=== PATIENT | female | born 1965 | race Two or more races ===

== ENCOUNTER → 2016-08-08 | Outpatient (CLI) | payer BC ==
--- NOTE | 2016-08-15 10:01 | MM ---
Reason for exam: screening (asymptomatic). Last mammogram was performed 1 year and 2 months ago. Physical Findings: A clinical breast exam by your physician is recommended on an annual basis and results should be correlated with mammographic findings. MG 3D Screening Mammo W/Cad Bilateral CC and MLO view(s) were taken. Prior study comparison: June 13, 2015, mammogram, performed at [facility]. October 26, 2013, mammogram, performed at [facility]. October 19, 2013, mammogram, performed at [facility]. The breast tissue is extremely dense which could obscure a lesion on mammography. Finding: There are typically benign round, diffuse/scattered calcifications in both breasts, greater in the right breast. There is no discrete abnormality. ASSESSMENT: Benign, BI-RAD 2 RECOMMENDATION: Routine screening mammogram of both breasts in 1 year.
== END | disposition home or self-care (01) ==
LOC: RADMAMWWP 12:23
PROVIDERS: ATTEND Obstetrics & Gynecology
DX: Z12.31 Encounter for screening mammogram for malignant neoplasm of breast (principal)
CPT/HCPCS: 77063; G0202

== ENCOUNTER → 2018-01-08 | Outpatient (CLI) | payer BC ==
--- NOTE | 2018-01-10 07:30 | MM ---
Reason for exam: screening (asymptomatic). Last mammogram was performed 1 year and 5 months ago. Physical Findings: A clinical breast exam by your physician is recommended on an annual basis and results should be correlated with mammographic findings. MG 3D Screening Mammo W/Cad Bilateral CC and MLO view(s) were taken. Prior study comparison: August 08, 2016, bilateral MG 3d screening mammo w/ cad. June 13, 2015, mammogram, performed at [facility]. The breast tissue is extremely dense which could obscure a lesion on mammography. Diffuse punctate calcifications throughout are stable. No significant changes when compared with prior studies. ASSESSMENT: Benign, BI-RAD 2 RECOMMENDATION: Routine screening mammogram of both breasts in 1 year. Patient should continue monthly self breast exams. A negative mammogram should not preclude additional follow up of suspicious palpable abnormalities. ESTIVEN
== END | disposition home or self-care (01) ==
LOC: RADMAMWWP 12:53
PROVIDERS: ATTEND Obstetrics & Gynecology
DX: Z12.31 Encounter for screening mammogram for malignant neoplasm of breast (principal)
CPT/HCPCS: 77063; 77067

== ENCOUNTER → 2019-04-29 | Outpatient (CLI) | payer BC ==
--- NOTE | 2019-04-29 09:23 | US ---
EXAMINATION TYPE: US pelvic complete DATE OF EXAM: 04/29/2019 COMPARISON: NONE CLINICAL HISTORY: N93.8 Dysfunctional Uterine Bleeding. Patient states her doctor felt her uterus was enlarged, patient states no pelvic pain or irregular bleeding, 6, para 4, miscarriage. TECHNIQUE: . Transabdominal sonographic images of the pelvis were acquired. Date of LMP: 04/11/2019 EXAM MEASUREMENTS: Uterus: 10.2 x 6.3 x 7.3 cm Endometrial Stripe: 1.2 cm Right Ovary: 2.4 x 1.7 x 2.2 cm Left Ovary: 3.9 x 2.6 x 2.3 cm 1. Uterus: Enlarged. Nabothian cysts seen. Heterogeneous with 1.8cm hypoechoic area and 1.2cm hypere choic area seen . These could be fibroids 2. Endometrium: wnl 3. Right Ovary: wnl 4. Left Ovary: 3.0 x 1.7 x 1.5cm complex cystic area 5. Bilateral Adnexa: wnl 6. Posterior cul-de-sac: wnl IMPRESSION: 1. Small fibroids within the uterus. Nabothian cyst is also present. 2. Left ovarian cyst. Follow-up in 6 weeks is recommended.
== END | disposition home or self-care (01) ==
LOC: RADUSWWP 08:29
PROVIDERS: ATTEND Obstetrics & Gynecology
DX: D25.9 Leiomyoma of uterus, unspecified (principal); N88.8 Other specified noninflammatory disorders of cervix uteri; N83.292 Other ovarian cyst, left side
CPT/HCPCS: 76856

== ENCOUNTER → 2019-06-23 | Outpatient (CLI) | payer BC ==
--- NOTE | 2019-06-23 10:19 | US ---
EXAMINATION TYPE: US pelvic complete DATE OF EXAM: 06/23/2019 COMPARISON: 04/29/2019 CLINICAL HISTORY: N83.0 LT OVARIAN CYST. reassess left ovarian cyst, no pelvic pain today TECHNIQUE: TA. Transabdominal sonographic images of the pelvis were acquired. Transvaginal sonogra phic images were medically necessary to better assess the following anatomy: PATIENT REFUSED TV Date of LMP: 2 weeks ago, unsure exact date EXAM MEASUREMENTS: Uterus: 10.6 x 5.4 x 6.3 cm Endometrial Stripe: 1.5 cm Right Ovary: 4.0 x 3.1 x 2.9 cm Left Ovary: 3.8 x 2.5 x 2.9 cm 1. Uterus: Retroverted 2.0cm right fundal hypoechoic area, noted on previous exam, may represent sma ll fibroid, 1.0cm anterior myometrial hyperechoic area, noted previously 2. Endometrium: wnl 3. Right Ovary: 2.8cm simple cyst 4. Left Ovary: 2.6cm hemorraghic cyst 5. Bilateral Adnexa: wnl 6. Posterior cul-de-sac: wnl IMPRESSION: 1. Findings again suggest uterine fibroids similar in size to the prior exam. 2. 2.8 cm right simple ovarian cyst. 3. Complex appearing 2.6 cm left ovarian cyst which previously measured 3 cm. Differential diagnosis would include a hemorrhagic cyst, endometrioma. Neoplasms of the ovary not excluded. Correlate clinic ally and if necessary with CA 125.
--- NOTE | 2019-06-25 08:52 | MM ---
Reason for exam: screening (asymptomatic). Last mammogram was performed 1 year and 5 months ago. History: Took hormonal contraceptives for 6 months. Physical Findings: A clinical breast exam by your physician is recommended on an annual basis and results should be correlated with mammographic findings. MG 3D Screening Mammo W/Cad Bilateral CC and MLO view(s) were taken. Prior study comparison: January 08, 2018, bilateral MG 3d screening mammo w/cad. August 08, 2016, bilateral MG 3d screening mammo w/cad. The breast tissue is extremely dense which could obscure a lesion on mammography. There are round oval bilateral masses most mammographically compatible with cysts. Benign appearing diffuse bilateral calcifications. No suspicious abnormality in the left breast. Questionable 4mm distortion in the right central breast, 6cm from nipple on MLO 3D 34/74 possible medial correlate on CC 34/65. ASSESSMENT: Incomplete: need additional imaging evaluation, BI-RAD 0 RECOMMENDATION: Special view mammogram of the right breast. If lesion persists on supplemental views, image directed ultrasound is recommended. [facility] will attempt to contact patient to return for supplemental views and ultrasound if indicated.
== END | disposition home or self-care (01) ==
LOC: RADMAMWWP 08:14
PROVIDERS: ATTEND Obstetrics & Gynecology
DX: Z12.31 Encounter for screening mammogram for malignant neoplasm of breast (principal); N83.202 Unspecified ovarian cyst, left side; N83.201 Unspecified ovarian cyst, right side
CPT/HCPCS: 76856; 77063; 77067

== ENCOUNTER → 2019-07-13 | Outpatient (CLI) | payer BC ==
--- NOTE | 2019-07-13 12:06 | MM ---
Reason for exam: additional evaluation requested from abnormal screening. Last mammogram was performed 1 month ago. History: Took hormonal contraceptives for 6 months. Physical Findings: Nurse did not find any significant physical abnormalities on exam. MG 3D Work Up W/Cad RT Spot compression CC, spot compression MLO, and LM view(s) were taken of the right breast. Prior study comparison: June 23, 2019, bilateral MG 3d screening mammo w/cad. January 08, 2018, bilateral MG 3d screening mammo w/cad. The breast tissue is extremely dense which could obscure a lesion on mammography. Benign appearing calcifications in the right breast. Right slightly upper (on LM) inner focal asymmetry 6.3cm from nipple improves on additional views. Precautionary ultrasound will be performed. These results were verbally communicated with the patient and result sheet given to the patient on 07/13/19. ASSESSMENT: Incomplete: need additional imaging evaluation, BI-RAD 0 RECOMMENDATION: Ultrasound of the right breast.
--- NOTE | 2019-07-13 12:07 | USB ---
Reason for exam: additional evaluation requested from abnormal screening. History: Took hormonal contraceptives for 6 months. US Breast Workup Limited RT Right limited breast ultrasound including focal area of concern, retroareolar and axilla demonstrates a 13 x 3 x 11mm lobular, cystic lesion at 1 o'clock, multiple additional smaller simple cysts and a 6mm axilla node at the axilla tail. These results were verbally communicated with the patient and result sheet given to the patient on 07/13/19. ASSESSMENT: Benign, BI-RAD 2 RECOMMENDATION: Return to routine screening mammogram schedule for both breasts.
== END | disposition home or self-care (01) ==
LOC: RADMAMWWP 10:14
PROVIDERS: ATTEND Obstetrics & Gynecology
DX: R92.8 Other abnormal and inconclusive findings on diagnostic imaging of breast (principal)
CPT/HCPCS: 77061; 77065

== ENCOUNTER → 2019-07-17 | Outpatient (CLI) | payer BC ==
[2019-07-17 09:18] LABS: Basophils # (A) 0.1 k/uL (0-0.2); Basophils % (A) 1 %; Eosinophils # (A) 0.3 k/uL (0-0.7); Eosinophils % (A) 6 %; HCT 40.2 % (34.0-46.0); Lymphocytes # (A) 1.8 k/uL (1.0-4.8); Lymphocytes % (A) 33 %; MCH 31.1 pg (25.0-35.0); MCHC 32.3 g/dL (31.0-37.0); MCV 96.3 fL (80.0-100.0); Monocytes # (A) 0.4 k/uL (0-1.0); Monocytes % (A) 7 %; Neutrophils # (A) 2.7 k/uL (1.3-7.7); Neutrophils % (A) 50 %; Platelet Count 365 k/uL (150-450); RBC 4.17 m/uL (3.80-5.40); RDW 12.4 % (11.5-15.5); WBC 5.4 k/uL (3.8-10.6)
== END | disposition home or self-care (01) ==
LOC: LABPAT 08:19
PROVIDERS: ATTEND Obstetrics & Gynecology
DX: Z01.818 Encounter for other preprocedural examination (principal); Z01.812 Encounter for preprocedural laboratory examination
CPT/HCPCS: 36415; 85025; 93005

== ENCOUNTER 2019-07-24 06:27 | Day surgery (SDC) | payer BC ==
[2019-07-22 09:42] VITALS: BMI 26.2
--- NOTE | 2019-07-23 09:57 | P.HPOB ---
History of Present Illness H&P Date: 07/23/19 Chief Complaint: Dysfunctional uterine bleeding Patient is a 54-year-old female with dysfunctional uterine bleeding and endometrial thickening on ultrasound. She is scheduled for D&C with hysteroscopy to thoroughly evaluate this. Risks/benefits/alternatives to this procedure were discussed with the patient in detail prior to proceeding to the operating room. She is 54 years old but continues to have regular menses she relates that she has not skipped any cycles. On physical exam vital signs are stable and afebrile. Heart regular, lungs clear, extremities without pain. Abdomen is soft and nontender. Pelvic exam is otherwise unremarkable. Past Medical History Past Medical History: No Reported History History of Any Multi-Drug Resistant Organisms: None Reported Past Surgical History: Hernia Repair, Tonsillectomy, Tubal Ligation Additional Past Surgical History / Comment(s): Umbilical hernia repair as child, colnoscopy. Past Anesthesia/Blood Transfusion Reactions: Family History of Problems w/ Anesthesia Additional Past Anesthesia/Blood Transfusion Reaction / Comment(s): Sister hard to wake up. Past Psychological History: Anxiety Smoking Status: Never smoker Past Alcohol Use History: None Reported Past Drug Use History: None Reported - Past Family History Father Family Medical History: Cancer Medications and Allergies Home Medications Medication Instructions Recorded Confirmed Type Aspirin [Adult Low Dose Aspirin EC] 81 mg PO DAILY 07/22/19 07/22/19 History Multivitamins, Thera [Multivitamin 1 tab PO DAILY 07/22/19 07/22/19 History (formulary)] Allergies Allergy/AdvReac Type Severity Reaction Status Date / Time No Known Allergies Allergy Verified 07/22/19 09:44 Exam Osteopathic Statement: *. No significant issues noted on an osteopathic structural exam other than those noted in the History and Physical/Consult. - OBG Physical Exam Breast: both: normal (no masses) Abdomen: bowel sounds normal, no diffuse tenderness, no bruit present, no guarding noted, no hepatomegaly, no splenomegaly, no mass Vulva: both: normal Vagina: normal moisture, no discharge Cervix: no lesion, no discharge Uterus: normal size, normal contour Adnexa: both: normal Anus/Rectum: normal perianal skin, no rectal mass, no hemorrhoids, heme negative
[~2019-07-24 06:27] MED LIST: DEXAMETHASONE SOD PHOSPHATE 10 MG/ML 1 ML VIAL IV ONE; HYDROmorphone 0.5 MG/0.5 ML SYRINGE IVP PRN; LACTATED RINGERS 1,000 ML IV SCH; MIDAZOLAM 2 MG/2 ML VIAL IV PRN; ONDANSETRON 4 MG/2 ML VIAL IVP ONE; Pre Op ABX Message 1 EACH MISC MISCELLANE ONE; SCOPOLAMINE 1.5MG/72HR PATCH TRANSDERM ONE
[2019-07-24] MEDS ORDERED: LIDOCAINE 1% 20 ML VIAL (10MG/ML) FOR IV START INTRADERMA ONE (06:54)
[2019-07-24] MEDS ORDERED: MIDAZOLAM 2 MG/2 ML VIAL ONE (07:34)
[2019-07-24] MEDS ORDERED: fentaNYL (PF) 50 MCG/ML 2 ML AMP ONE (07:34)
[2019-07-24] MEDS ORDERED: LIDOCAINE 1% INJ 10MG/ML (20 ML MDV) ONE (07:34)
[2019-07-24] MEDS ORDERED: PROPOFOL 10 MG/ML 20 ML VIAL IV ONE (07:34)
[2019-07-24] MEDS ORDERED: KETOROLAC 30 MG/ML 1 ML VIAL ONE (07:34)
--- NOTE | 2019-07-24 08:00 | P.OP ---
Date of Procedure: 07/24/19 Preoperative Diagnosis: Dysfunctional uterine bleeding Postoperative Diagnosis: Same with suspected polyp Procedure(s) Performed: D&C with hysteroscopy Anesthesia: CASEY Surgeon: Nicholas Lazo Estimated Blood Loss (ml): 5 Pathology: other (Uterine curettings) Condition: stable Disposition: same day Operative Findings: Tissue pathology pending Description of Procedure: Patient was taken to the operating suite where a general anesthetic was found to be adequate. She was prepped and draped in the normal sterile fashion and placed in the dorsal lithotomy position. Initially a weighted speculum was inserted into the vagina and the anterior lip of the cervix was identified and grasped with an Allis clamp. Cervix was then dilated and camera was inserted. Suspected polyp was noted therefore camera was removed and sharp curettings of the endometrium were obtained. All this tissues collected placed on Telfa and sent to pathology for evaluation. Once this was completed camera was reinserted and polyp was believed to be removed essentially in total. All instruments were then removed. Sponge, lap, needle counts were all correct 2. Patient was then taken to the recovery room in stable and satisfactory condition. Plan - Discharge Summary Discharge Rx Participant: Yes New Discharge Prescriptions: New Ibuprofen [Motrin] 600 mg PO Q6HR PRN #30 tab PRN Reason: Pain No Action Multivitamins, Thera [Multivitamin (formulary)] 1 tab PO DAILY Aspirin [Adult Low Dose Aspirin EC] 81 mg PO DAILY Discharge Medication List Aspirin [Adult Low Dose Aspirin EC] 81 mg PO DAILY 07/22/19 [History] Multivitamins, Thera [Multivitamin (formulary)] 1 tab PO DAILY 07/22/19 [History] Ibuprofen [Motrin] 600 mg PO Q6HR PRN #30 tab 07/24/19 [Rx] Follow up Appointment(s)/Referral(s): Nicholas Lazo DO [Doctor of Osteopathic Medicine] - 10 Days Activity/Diet/Wound Care/Special Instructions: No heavy lifting, limit stairs and driving, and pelvic rest. If any high temperatures, heavy bleeding, or severe pain call my office
[2019-07-24 08:15] VITALS: TEMP 97
[2019-07-24 08:25] VITALS: RESP 16
[2019-07-24 09:29] VITALS: BP 123/72; PULSE 62
== END 2019-07-24 09:53 | disposition home or self-care (01) ==
LOC: OR 06:27
PROVIDERS: ATTEND Obstetrics & Gynecology
DX: N93.8 Other specified abnormal uterine and vaginal bleeding (principal); N85.9 Noninflammatory disorder of uterus, unspecified; Z87.19 Personal history of other diseases of the digestive system; Z90.89 Acquired absence of other organs; Z98.51 Tubal ligation status; Z98.890 Other specified postprocedural states; F41.9 Anxiety disorder, unspecified; Z79.82 Long term (current) use of aspirin
CPT/HCPCS: 81025; 88305; 58558; J2250; J1100; J2405; J2001; J3010; J1885; J2704

== ENCOUNTER → 2020-06-17 | Outpatient (CLI) | payer BC ==
--- NOTE | 2020-06-17 09:24 | US ---
EXAMINATION TYPE: US pelvic complete DATE OF EXAM: 06/17/2020 COMPARISON: US CLINICAL HISTORY: N93.8 DUB. Patient stated has had 2 episodes of lengthier menstrual cycles recently ; ; had D&C; takes aspirin TECHNIQUE: Transabdominal (TA). Transabdominal sonographic images of the pelvis were acquired. Date of LMP: 05/15/2020 EXAM MEASUREMENTS: Uterus: 9.9 x 6.1 x 4.6 cm Endometrial Stripe: 1.5 cm Right Ovary: 2.7 x 1.9 x 1.6 cm Left Ovary: 4.4 x 3.1 x 3.1 cm 1. Uterus: Anteverted; mid myometrial hyperechoic focus (leiomyoma) = 1.1 x 1.4 x 0.9cm; Nabothian C yst seen in cervix =1.3 x 1.0 x 0.6cm 2. Endometrium: thicker than normal range of 7mm-14mm for Day 34 LMP 3. Right Ovary: wnl 4. Left Ovary: small follicular cyst = 1.7 x 1.1 x 1.5cm 5. Bilateral Adnexa: wnl 6. Posterior cul-de-sac: wnl Heterogeneous thickened endometrium On transabdominal pelvic ultrasound. Small adjacent 1.1 cm hyperechoic intramural fibroid anteriorly. IMPRESSION: Persistent abnormal thickened endometrium for postmenopausal female is especially worriso me given patient's history of bleeding, neoplasm needs to be excluded, further investigation with ryan etran is advised.
== END | disposition home or self-care (01) ==
LOC: RADUSWWP 08:13
PROVIDERS: ATTEND Obstetrics & Gynecology
DX: R93.89 Abnormal findings on diagnostic imaging of other specified body structures (principal); N93.8 Other specified abnormal uterine and vaginal bleeding
CPT/HCPCS: 76856

== ENCOUNTER → 2020-07-01 | Outpatient (CLI) | payer BC ==
--- NOTE | 2020-07-05 11:40 | MM ---
Reason for exam: screening (asymptomatic). Last mammogram was performed 1 year ago. History: Took hormonal contraceptives for 6 months. Physical Findings: A clinical breast exam by your physician is recommended on an annual basis and results should be correlated with mammographic findings. MG 3D Screening Mammo W/Cad Bilateral CC and MLO view(s) were taken. Prior study comparison: June 23, 2019, bilateral MG 3d screening mammo w/cad. January 08, 2018, bilateral MG 3d screening mammo w/cad. August 08, 2016, bilateral MG 3d screening mammo w/cad. The breast tissue is heterogeneously dense. This may lower the sensitivity of mammography. Diffuse calcifications redemonstrated greater in the right breast. Asymmetric density inferior left MLO view incompletely disperse on 3D. ASSESSMENT: Incomplete: need additional imaging evaluation, BI-RAD 0 RECOMMENDATION: Special view mammogram of the left breast. (3D) If lesion persists on supplemental views, image directed ultrasound is recommended. [facility] will attempt to contact patient to return for supplemental views and ultrasound if indicated.
== END | disposition home or self-care (01) ==
LOC: RADMAMWWP 13:08
PROVIDERS: ATTEND Obstetrics & Gynecology
DX: Z12.31 Encounter for screening mammogram for malignant neoplasm of breast (principal)
CPT/HCPCS: 77063; 77067

== ENCOUNTER → 2020-07-29 | Outpatient (CLI) | payer BC ==
--- NOTE | 2020-07-29 12:05 | MM ---
Reason for exam: additional evaluation requested from abnormal screening. Last mammogram was performed 1 month ago. History: Took hormonal contraceptives for 6 months. Physical Findings: Nurse did not find any significant physical abnormalities on exam. MG 3D Work Up W/Cad LT Spot compression CC, spot compression MLO, and LM view(s) were taken of the left breast. Prior study comparison: July 01, 2020, bilateral MG 3d screening mammo w/cad. July 13, 2019, right breast MG 3d work up w/cad RT. The breast tissue is heterogeneously dense. This may lower the sensitivity of mammography. Inferior irregular density appears to disperse. Given appearance on screening ultrasound recommended. These results were verbally communicated with the patient and result sheet given to the patient on 07/29/20. ASSESSMENT: Incomplete: need additional imaging evaluation, BI-RAD 0 RECOMMENDATION: Ultrasound of the left breast. (3-9 o'clock)
--- NOTE | 2020-07-29 12:12 | USB ---
Reason for exam: additional evaluation requested from abnormal screening. History: Took hormonal contraceptives for 6 months. US Breast Workup Limited LT Left limited breast ultrasound including focal area of concern, retroareolar and axilla demonstrates no cystic or solid lesion seen. Dilated ducts. Scanned 3-9 o'clock. These results were verbally communicated with the patient and result sheet given to the patient on 07/29/20. ASSESSMENT: Probably benign, BI-RAD 3 RECOMMENDATION: Follow-up diagnostic mammogram of the left breast in 6 months.
== END | disposition home or self-care (01) ==
LOC: RADMAMWWP 10:20
PROVIDERS: ATTEND Obstetrics & Gynecology
DX: R92.8 Other abnormal and inconclusive findings on diagnostic imaging of breast (principal)
CPT/HCPCS: 77061; 77065

== ENCOUNTER → 2020-08-23 | Outpatient (CLI) | payer BC ==
--- NOTE | 2020-08-23 09:28 | US ---
EXAMINATION TYPE: US pelvic complete DATE OF EXAM: 08/23/2020 COMPARISON: Prior pelvic ultrasound June 17, 2020 CLINICAL HISTORY: N93.8Disfunctional uterine bleeding R93.89Thickened. Thickened endo TECHNIQUE: Transabdominal (TA). Transabdominal sonographic images of the pelvis were acquired. EXAM MEASUREMENTS: Uterus: 10.6 x 6.1 x 6.6 cm Endometrial Stripe: 1.0 cm Right Ovary: 4.3 x 3.6 x 3.8 cm Left Ovary: 4.4 x 3.0 x 2.6 cm 1. Uterus: Anteverted Echogenic area measuring 1.1 x 1.1 x 1.4 cm 2. Endometrium: Appears wnl 3. Right Ovary: Complex cystic area 3.1 x 3.7 x 2.8 cm 4. Left Ovary: appears wnl 5. Bilateral Adnexa: wnl 6. Posterior cul-de-sac: wnl Endometrial stripe measures 10 mm which is abnormally thickened for postmenopausal female. Persistent 1.4 cm hyperechoic round structure anterior myometrium could reflect small fibroid. No free fluid. Right ovary shows new 3.7 cm thin-walled cyst with thin septa on current study. IMPRESSION: Persistent abnormal thickening of endometrium for a postmenopausal female, neoplasm needs to be excluded. Further investigation with sampling advised that has not been performed. Suspect new 3.7 cm right ovarian hemorrhagic cyst, or nonsimple cysts. Almost certainly benign. Consider repeat ultrasound in one to 2 months time to reassess.
== END | disposition home or self-care (01) ==
LOC: RADUSWWP 08:19
PROVIDERS: ATTEND Obstetrics & Gynecology
DX: N93.8 Other specified abnormal uterine and vaginal bleeding (principal); R93.89 Abnormal findings on diagnostic imaging of other specified body structures
CPT/HCPCS: 76856

== ENCOUNTER → 2020-11-15 | Outpatient (CLI) | payer BC ==
--- NOTE | 2020-11-15 09:12 | US ---
EXAMINATION TYPE: US pelvic complete DATE OF EXAM: 11/15/2020 COMPARISON: 08/23/2020 CLINICAL HISTORY: N83.0 FU right ovarian cyst. follow up right ovarian cyst. irregular menses TECHNIQUE: Transabdominal (TA) - patient refusing TV exam at this time Date of LMP: started 09/27/20 and ended 11/07/20, started again 11/13/20 EXAM MEASUREMENTS: Uterus: 9.7 x 5.8 x 6.7 cm Endometrial Stripe: 0.6 cm Right Ovary: 3.1 x 1.3 x 1.7 cm Left Ovary: 4.8 x 2.9 x 3.1 cm 1. Uterus: Anteverted hyperechoic area anterior body = 1.1 x 1.3 x 1.4cm and isoechoic area anteri or fundus = 1.5 x 1.3 x 1.7cm these findings were present previously. 2. Endometrium: appears wnl. This has diminished in thickness from the comparison. 3. Right Ovary: appears wnl as visualized . Previous complex cyst is not identified. 4. Left Ovary: enlarged and heterogeneous 5. Bilateral Adnexa: small amount of free fluid left adnexa 6. Posterior cul-de-sac: wnl IMPRESSION: 1. Stable appearing uterine fibroids. One of these is hyperechoic without shadowing which is atypical . Consider MRI for additional evaluation.
== END | disposition home or self-care (01) ==
LOC: RADUSWWP 08:16
PROVIDERS: ATTEND Obstetrics & Gynecology
DX: D25.9 Leiomyoma of uterus, unspecified (principal)
CPT/HCPCS: 76856

== ENCOUNTER → 2021-02-08 | Outpatient (CLI) | payer BC ==
--- NOTE | 2021-02-10 13:55 | MM ---
Reason for exam: follow-up at short interval from prior study. Last mammogram was performed 6 months ago. History: Took hormonal contraceptives for 6 months. Physical Findings: Nurse did not find any significant physical abnormalities on exam. MG 3D Diag Mammo W/Cad LT CC and MLO view(s) were taken of the left breast. Prior study comparison: July 01, 2020, bilateral MG 3d screening mammo w/cad. The breast tissue is extremely dense which could obscure a lesion on mammography. Finding: There are typically benign fine diffuse/scattered calcifications in the left breast. There is no discrete abnormality including area of concern lower MLO view. No significant changes in finding since July 01, 2020. These results were verbally communicated with the patient and result sheet given to the patient on 02/08/21. ASSESSMENT: Benign, BI-RAD 2 RECOMMENDATION: Return to routine screening mammogram schedule for both breasts. Back on schedule.
== END | disposition home or self-care (01) ==
LOC: RADMAMWWP 10:08
PROVIDERS: ATTEND Obstetrics & Gynecology
DX: R92.2 Inconclusive mammogram (principal); R92.1 Mammographic calcification found on diagnostic imaging of breast
CPT/HCPCS: 77061; 77065

== ENCOUNTER → 2021-06-23 | Outpatient (CLI) | payer BC ==
[2021-06-23 11:47] LABS: Basophils # (A) 0.1 k/uL (0-0.2); Basophils % (A) 1 %; Eosinophils # (A) 0.2 k/uL (0-0.7); Eosinophils % (A) 4 %; HCT 43.6 % (34.0-46.0); HGB 13.7 gm/dL (11.4-16.0); Lymphocytes # (A) 1.4 k/uL (1.0-4.8); Lymphocytes % (A) 25 %; MCH 32.1 pg (25.0-35.0); MCHC 31.5 g/dL (31.0-37.0); Mean Platelet Volume 7.1; Monocytes # (A) 0.3 k/uL (0-1.0); Monocytes % (A) 6 %; Neutrophils # (A) 3.6 k/uL (1.3-7.7); Neutrophils % (A) 62 %; Platelet Count 315 k/uL (150-450); RBC 4.27 m/uL (3.80-5.40); RDW 11.7 % (11.5-15.5); WBC 5.7 k/uL (3.8-10.6)
== END | disposition home or self-care (01) ==
LOC: LABPAT 10:07
PROVIDERS: ATTEND Obstetrics & Gynecology
DX: Z01.818 Encounter for other preprocedural examination (principal)
CPT/HCPCS: 36415; 85025; 93005

== ENCOUNTER → 2021-06-29 | Day surgery (SDC) | payer BC ==
[2021-06-27 10:29] VITALS: BMI 22.2
--- NOTE | 2021-06-28 17:33 | P.HPOB ---
History of Present Illness H&P Date: 06/28/21 Chief Complaint: Dysfunctional uterine bleeding Patient is a 56-year-old female with continued vaginal bleeding. She has not missed a cycle and she is 56 years old her labs reveal possible postmenopausal status therefore we are moving forward with a tissue sampling/D&C to rule out pathology. As she has not gone for more than a year without having cycles difficult to say if she is menopausal or not but due to the fact that she is 56 we are taking the more cautious route and getting a tissue sample. Risks/benefits/alternatives to this procedure were reviewed the patient in detail all questions were answered for her prior to proceeding to the operating room. Past Medical History Past Medical History: No Reported History History of Any Multi-Drug Resistant Organisms: None Reported Past Surgical History: Hernia Repair, Tonsillectomy, Tubal Ligation Additional Past Surgical History / Comment(s): D&C, umbilical hernia repair. Past Anesthesia/Blood Transfusion Reactions: No Reported Reaction Additional Past Anesthesia/Blood Transfusion Reaction / Comment(s): "Sister slow to wake up, allergic reaction to something, received Benadryl". Past Psychological History: No Psychological Hx Reported Smoking Status: Never smoker Past Alcohol Use History: Rare Past Drug Use History: None Reported - Past Family History Father Family Medical History: Cancer Medications and Allergies Home Medications Medication Instructions Recorded Confirmed Type Multivitamins, Thera [Multivitamin 1 tab PO DAILY 07/22/19 06/27/21 History (formulary)] diphenhydrAMINE [Benadryl] 25 mg PO HS PRN 06/27/21 06/27/21 History Allergies Allergy/AdvReac Type Severity Reaction Status Date / Time No Known Allergies Allergy Verified 06/27/21 10:18 Exam Osteopathic Statement: *. No significant issues noted on an osteopathic structural exam other than those noted in the History and Physical/Consult. - OBG Physical Exam Breast: both: normal (no masses) Abdomen: bowel sounds normal, no diffuse tenderness, no bruit present, no guarding noted, no hepatomegaly, no splenomegaly, no mass Vulva: both: normal Vagina: normal moisture, no discharge Cervix: no lesion, no discharge Uterus: normal size, normal contour Adnexa: both: normal Anus/Rectum: normal perianal skin, no rectal mass, no hemorrhoids, heme negative
[~2021-06-29] MED LIST changes: +.fentaNYL (PF) 50 MCG/ML 2 ML AMP ONE; -DEXAMETHASONE SOD PHOSPHATE 10 MG/ML 1 ML VIAL IV ONE; +DEXAMETHASONE SOD PHOSPHATE 4 MG/ML 1 ML VIAL IV ONE; +IBUPROFEN 200 MG TAB PO ONE; +LIDOCAINE 1% (10MG/ML) FOR IV START INTRADERMA PRN; +LIDOCAINE 1% INJ 10MG/ML (20 ML MDV) ONE; +MIDAZOLAM 2 MG/2 ML VIAL ONE; +PROPOFOL 10 MG/ML 20 ML VIAL IV ONE; -Pre Op ABX Message 1 EACH MISC MISCELLANE ONE; -SCOPOLAMINE 1.5MG/72HR PATCH TRANSDERM ONE
[2021-06-29 10:46] VITALS: TEMP 97.3
--- NOTE | 2021-06-29 12:03 | P.OP ---
Date of Procedure: 06/29/21 Preoperative Diagnosis: Postmenopausal bleeding Postoperative Diagnosis: Same with polyp Procedure(s) Performed: D&C with hysteroscopy and polypectomy Anesthesia: CASEY Surgeon: Nicholas Lazo Estimated Blood Loss (ml): 8 IV fluids (ml): 300 Pathology: other (Uterine curettings and polyp) Condition: stable Disposition: same day Operative Findings: Polyp noted at uterine fundal region bleeding to be removed in toto Description of Procedure: Patient was taken to the operating suite where a general anesthetic was found be adequate. She was prepped and draped in the normal sterile fashion and placed in the dorsal lithotomy position. Initially a weighted speculum was inserted in the vagina and anterior lip surface identified and grasped with a Allis clamp. Uterus is noted to be retroverted and sounded to 9 cm. Following sounding cervix was dilated and camera was inserted. At the fundal region there was a relatively large polyp that was noted on hysteroscopy there scope was then removed and polyp forceps were used to excise the polyp. Once this was completed sharp curettings of the endometrium were obtained and the remainder of the tissues collected, placed on Telfa and sent to pathology for evaluation. All instruments were then removed. Sponge, lap, needle counts were all correct 2. Patient was then taken to the recovery room in stable and satisfactory condition. Plan - Discharge Summary Discharge Rx Participant: Yes New Discharge Prescriptions: New Ibuprofen [Motrin] 600 mg PO Q6HR PRN #30 tab PRN Reason: Pain No Action Multivitamins, Thera [Multivitamin (formulary)] 1 tab PO DAILY diphenhydrAMINE [Benadryl] 25 mg PO HS PRN PRN Reason: Insomnia Discharge Medication List Multivitamins, Thera [Multivitamin (formulary)] 1 tab PO DAILY 07/22/19 [History] diphenhydrAMINE [Benadryl] 25 mg PO HS PRN 06/27/21 [History] Ibuprofen [Motrin] 600 mg PO Q6HR PRN #30 tab 06/29/21 [Rx] Follow up Appointment(s)/Referral(s): Nicholas Lazo DO [Doctor of Osteopathic Medicine] - 10 Days Activity/Diet/Wound Care/Special Instructions: No heavy lifting, limit stairs and driving, and pelvic rest. If any high temperatures, heavy bleeding, or severe pain call my office Discharge Disposition: HOME SELF-CARE
[2021-06-29 13:23] VITALS: RESP 14
[2021-06-29 13:39] VITALS: BP 142/88; PULSE 70
== END | disposition home or self-care (01) ==
LOC: OR 10:24
PROVIDERS: ATTEND Obstetrics & Gynecology
DX: N84.0 Polyp of corpus uteri (principal); N95.0 Postmenopausal bleeding; N93.8 Other specified abnormal uterine and vaginal bleeding; Z98.51 Tubal ligation status; Z98.890 Other specified postprocedural states; Z80.9 Family history of malignant neoplasm, unspecified
CPT/HCPCS: 81025; 88305; 58558; J2250; J1100; J2405; J2001; J3010; J2704

== ENCOUNTER → 2021-09-22 | Outpatient (CLI) | payer OTHER ==
--- NOTE | 2021-09-25 10:57 | MM ---
Reason for exam: screening (asymptomatic). Last mammogram was performed 7 months ago. History: Took hormonal contraceptives for 6 months. Physical Findings: A clinical breast exam by your physician is recommended on an annual basis and results should be correlated with mammographic findings. MG 3D Screening Mammo W/Cad Bilateral CC and MLO view(s) were taken. Prior study comparison: February 08, 2021, left breast MG 3d diag mammo w/cad LT. July 29, 2020, left breast MG 3d work up w/cad LT. The breast tissue is heterogeneously dense. This may lower the sensitivity of mammography. Diffuse bilateral calcifications are stable. No significant changes when compared with prior studies. ASSESSMENT: Benign, BI-RAD 2 RECOMMENDATION: Routine screening mammogram of both breasts in 1 year.
== END | disposition home or self-care (01) ==
LOC: RADMAMWWP 09:53
PROVIDERS: ATTEND Obstetrics & Gynecology
DX: Z12.31 Encounter for screening mammogram for malignant neoplasm of breast (principal)
CPT/HCPCS: 77063; 77067

== ENCOUNTER 2024-04-24 11:17 | Day surgery (SDC) | payer OTHER ==
[2024-04-22 14:04] VITALS: BMI 23.2
[2024-04-24] MEDS: LACTATED RINGERS 1,000 ML IV SCH (12:57)
[2024-04-24] MEDS: IV FLUID CONTINUATION 1,000 ML IV ONE (12:58)
[2024-04-24 13:04] VITALS: TEMP 97.8
[2024-04-24] MEDS ORDERED: PROPOFOL 10 MG/ML 20 ML VIAL IV ONE (13:10)
--- NOTE | 2024-04-24 13:29 | P.PCN ---
Date of Procedure: 04/24/24 Procedure(s) Performed: BRIEF HISTORY: Patient is a 59-year-old pleasant female scheduled for an elective colonoscopy as a part of evaluation of recent episode of acute sigmoid diverticulitis 2 months ago.. PROCEDURE PERFORMED: Colonoscopy. PREOPERATIVE DIAGNOSIS: Recent episode of acute sigmoid diverticulitis. IV sedation per Anesthesia. PROCEDURE: After informed consent was obtained, the patient, was brought into the endoscopy unit. IV sedation was administered by Anesthesia under continuous monitoring. Digital rectal examination was normal. Initially the Olympus CF-160 flexible video colonoscope was then inserted in the rectum, gradually advanced into the cecum without any difficulty. Careful examination was performed as the scope was gradually being withdrawn. Ileocecal valve and the appendiceal orifice were visualized and appeared normal. Prep was excellent. Mucosa of the cecum, ascending colon, transverse colon, descending colon, sigmoid colon, and rectum appeared normal. Moderate sigmoid diverticulosis. Retroflexion was performed in the rectum and no lesions were seen. The patient tolerated the procedure well. IMPRESSION: Normal-appearing colon from rectum to cecum with no evidence of colorectal neoplasia Moderate sigmoid diverticulosis. RECOMMENDATIONS: Findings of this examination were discussed with the patient as well as her family. She was advised to continue to high-fiber diet and take fiber supplements on a regular basis. Recommended repeat screening colonoscopy in 10 years..
[2024-04-24 13:36] VITALS: RESP 16
[2024-04-24 13:47] VITALS: BP 117/75; PULSE 62
== END 2024-04-24 14:10 | disposition home or self-care (01) ==
LOC: ORWHC2ENDO 11:17
PROVIDERS: ATTEND Internal Medicine Gastroenterology
DX: K57.30 Diverticulosis of large intestine without perforation or abscess without bleeding (principal)
CPT/HCPCS: 45378